=== PATIENT | male | born 1930 | race Caucasian/White ===

== ENCOUNTER 2017-09-06 08:47 | Day surgery (SDC) | payer OTHER, BC ==
--- NOTE | 2017-09-05 14:56 | RAD REPORT ---
EXAM DESCRIPTION: RAD - Chest Pa And Lat (2 Views) - 09/05/2017 2:30 pm CLINICAL HISTORY: Preop chest, pending prostate surgery COMPARISON: November 2015 TECHNIQUE: PA and lateral views of the chest were obtained. FINDINGS: The lungs are clear of an acute infiltrate, mass or failure finding. Right hemidiaphragm e levation with chronic right lung base atelectasis noted. This is a pattern similar to prior imaging. Heart size is normal and central vasculature is within normal limits. No pleural effusion or pneu mothorax seen. No acute bony finding noted. No aortic abnormality. IMPRESSION: No acute cardiopulmonary process. Chest findings are similar to comparison.
[2017-09-05 15:13] LABS: Absolute Lymphocytes (CBC) 1.2 K/uL (0.7-4.9); Absolute Monocytes 0.7 K/uL (0.1-1.3); Absolute Neutrophil 6.8 K/uL (1.8-8.0); Basophils % 0.8 % (0-1.3); Hematocrit 40.2 % (39.6-49.0); MCH 30.5 pg (27.0-35.0); MCV 92.3 fL (80-100); MPV 7.6 fL (7.6-11.3); Monocytes % 7.7 % (3.3-12.3); RBC Red Blood Cell Count 4.35 M/uL (4.33-5.43)
[2017-09-05 15:24] LABS: Urine Appearance CLEAR; Urine Bilirubin NEGATIVE (NEG); Urine Blood NEGATIVE (NEG); Urine Color YELLOW; Urine Glucose NEGATIVE (NEG); Urine Protein NEGATIVE (NEG); Urine Specific Gravity 1.015 (1.005-1.030); Urine Urobilinogen 0.2 mg/dL (0.2-1.0)
[2017-09-05 15:33] LABS: Urine Microscopic Reflex ORDER UMIC
[2017-09-05 15:35] LABS: Protime INR 0.99
[2017-09-05 15:54] LABS: Potassium 6.5 mEq/L (3.6-5.0)
[2017-09-05 16:51] LABS: Urine Bacteria <20 /HPF (NONE SEEN); Urine Culture Reflex Order NOT NEEDED; Urine RBC <5 /HPF (NONE SEEN)
--- NOTE | 2017-09-05 18:34 | EKG ---
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
[2017-09-06 09:39] LABS: Potassium 5.3 mEq/L (3.6-5.0)
[2017-09-06] MEDS ORDERED: GENTAMICIN 80 MG/100 ML BAG 80 MG/100 ML BAG IV ONE (10:35)
[2017-09-06] MEDS ORDERED: NA CHLORIDE 0.9% 1,000 ML ONE (10:35)
[2017-09-06] MEDS ORDERED: PROPOFOL 200 MG/20 ML VIAL IV ONE (12:03)
[2017-09-06] MEDS ORDERED: FENTANYL CITR 100 MCG/2 ML ONE (12:03)
[2017-09-06] MEDS ORDERED: LIDOCAINE 2% MPF 5 ML VIAL ONE (12:03)
[2017-09-06] MEDS ORDERED: DEXAMETHASONE 10 MG/ML VIAL ONE (12:29)
[2017-09-06] MEDS ORDERED: ONDANSETRON HCL 40 MG/20 ML VIAL ONE (12:30)
[2017-09-06] MEDS ORDERED: CIPROFLOXACIN 400mg IV 400 MG/200 ML BAG IV ONE (12:33)
[2017-09-06] MEDS ORDERED: NS 0.9% VIAL 10 ML ONE (12:48)
[2017-09-06] MEDS ORDERED: Phenylephrine HCl 10 MG/ML 1 ML VIAL ONE (12:48)
[2017-09-06] MEDS: MEPERIDINE HCL 25 MG/0.5 ML ONE ×2 (13:25→13:31)
[2017-09-06] MEDS ORDERED: PHENAZOPYRIDINE 100MG TAB PO ONE (13:38)
[2017-09-06] MEDS ORDERED: TRAMADOL HCL 50 MG TAB ONE (14:14)
[2017-09-06 14:35] VITALS: TEMP 96.9; O2SAT 93
[2017-09-06 15:03] VITALS: BP 110/60
== END 2017-09-06 15:30 | disposition home or self-care (01) ==
LOC: OR 08:47
PROVIDERS: ATTEND Urology
PROC: 0VT08ZZ Resection of Prostate, Via Natural or Artificial Opening Endoscopic (ICD-10-PCS; principal; 2017-09-06 12:00)
DX: N40.1 Benign prostatic hyperplasia with lower urinary tract symptoms (principal); R39.12 Poor urinary stream; E11.9 Type 2 diabetes mellitus without complications; I10 Essential (primary) hypertension; E03.9 Hypothyroidism, unspecified; Z98.52 Vasectomy status; Z88.0 Allergy status to penicillin; Z88.8 Allergy status to other drugs, medicaments and biological substances; Z82.3 Family history of stroke
CPT/HCPCS: 36415 ×3; 52601; 71046; 80048; 82947; 82962 ×2; 84132 ×2; 85025; 85610; 85730; 86850; 86900; 86901; 87077; 87086; 87088; 87186; 88305; 93005; J0744; J1100; J1580; J2175; J2370; J2405; J3010; J7030; 81003; 81015

== ENCOUNTER 2020-03-30 11:19 | Inpatient (IN) | payer OTHER, BC ==
--- OUTSIDE RECORDS SUMMARY | 2020-03-30 11:24 | XMS REPORT | Continuity of Care Document ---
:1930 Author Organization [facility] t Address [address] [place] [address] Care Team Providers Name Role Phone Unavailable Unavailable Unavailable Payers Payer Name Policy Type Policy Number Effective Date Expiration Date S ource Problems This patient has no known problems. Allergies, Adverse Reactions, Alerts Allergy Allergy Status Severity Reaction(s) Onset Inactive Treating Comm ents Source Name Type Date Date Clinician [place] DA Active [facility] ins 05-18 [place] [facility] No Known DA Active [facility] Allergie 05-17 [place] [facility] 00[facility] Medications This patient has no known medications. Procedures This patient has no known procedures. Results Test Description Test Time Test Comments Results Result [facility] e Comments - XR FLUORO FOR 2018-05-18 Patient Name: SPINE INJ 15:54:00 NNAMDI DORANTES Unit No: [id number] EXAMS: CPT CODE: [id number] XR FLUORO FOR SPINE INJ 28636 LUMBAR TRANSFORAMINAL INJECTION AND LUMBAR FACET BLOCK AND DECOMPRESSION OF THE FACET SYNOVIAL CYST REFERRING PHYSICIAN: PREOPERATIVE DIAGNOSIS: 1. Degenerative Lumbar Disc Disease. 2. Lumbar Facet Arthropathy POSTOPERATIVE DIAGNOSIS: Left L4-5 synovial cyst lumbar radiculopathy PROCEDURES PERFORMED Fluoroscopically guided needle localization of the bilateral L4, bilateral L5 with transforaminal epidural steroid injections 2. Transforaminal epidurogram/epidurogram s at bilateral L4, bilateral L5. 3. Fluoroscopic guided injections of the bilateral L4-5, bilateral L5-S1 intra-articular facets with local anesthetic and steroids. 4. Decompression left L4-5 synovial cyst FINDINGS: Minimal fluid removed from the cyst, concordant provocation bilateral L5 nerve roots for leg pain left L4 hip pain ANTIBIOTIC: Cefazolin ESTIMATED BLOOD LOSS: Minimal ANESTHESIA: (TIVA) Total intravenous anesthetic (patient intolerant to sedatives and hypnotics) COMPLICATIONS: None DETAILS OF PROCEDURE: After obtaining stable vital signs, informed consent and IV access, with no known contraindications to proceeding, the patient was taken to the fluoroscopy suite and placed in a prone position with all extremities padded and appropriate monitors placed. A sterile prep and drape was performed over the lumbosacral spine. Using fluoroscopic visualization at each level the insertion site was marked for a paravertebral approach to the foramen. Using standard technique, a 25 gauge needle was advanced to the base of the pedicle. In AP view, final positioning was obtained outside the 6 o clock position on the pedicle. Then, 1 ml of Isovue-300 contrast was injected to produce the epidurograms. No paresthesias were elicited with needle insertion or injection and there were no signs of intravascular or intrathecal uptake. Then, with 1 ml of 4% lidocaine and 10 mg of triamcinolone was injected incrementally with frequent negative aspirations. There were no signs of intravascular or intrathecal uptake. The patient's vital signs remained stable. [facility] NAME: NNAMDI DORANTES [address] [facility] PHYS: DOCUD - DoctorDarin MD [place], [place] [address] : 1930 AGE: 87 SEX: M LOC: YGosiaNOEMY PHONE #: [phone] EXAM DATE: 05/18/2018 [place]: [facility] [place] #: [phone] RAD #: D/C DT PAGE 1 Signed Report (CONTINUED) Patient Name: NNAMDI DORANTES Unit No: [id number] EXAMS: CPT CODE: [id number] XR FLUORO FOR SPINE INJ 94593 <Continued> The patient was placed in a prone position and the lumbosacral spine was prepped and draped in sterile fashion. The left L4-L5 facet synovial cyst was aspirated and minimal fluid was aspirated using a 27 guage 3.5 inch needle. Then using standard technique, using fluoroscopic guidance, a 27-gauge needle was advanced into the facet joint and 2 mL of Isovue-300 contrast was injected to produce an arthrogram. Then 2 mL was of 0.75 percent Marcaine and 2 mL of 4% lidocaine and 20 mg of triamcinolone was injected into the joint. Areas were cleaned of the prep and the patient was taken to the recovery room. at 1557 Reported and signed by: Darin Riley M.D. CC: Darin Riley MD Technologist: LUDIN LICONA RT(R) Transcribed D/ (4465) [email or web address] [facility] NAME: NNAMDI DORANTES [address] [facility] PHYS: Darin Sims MD [place], [place] [address] : 1930 AGE: 87 SEX: M LOC: SARAHI PHONE #: [phone] EXAM DATE: 05/18/2018 STATUS: [facility] [place] FAX #: [phone] RAD #: D/C DT PAGE 2 Signed Report Patient Name: NNAMDI DORANTES Unit No: [id number] EXAMS: CPT CODE: [id number] XR FLUORO FOR SPINE INJ 91439 <Continued> Orig Print D/T: S: 05/18/2018 (3510) [facility] NAME: NNAMDI DORANTES [facility] PHYS: Darin Sims MD [place], [place] [address] : 1930 AGE: 87 SEX: M LOC: SARAHI PHONE #: [phone] EXAM DATE: 05/18/2018 STATUS: [facility] [place]X #: [phone] RAD #: D/C DT PAGE 3 Signed Report GLUBED 2018-05-18 12:56:00 Test Item Value Reference Range Interpretation Comme nts GLUBED (test code = GLUBED) 105 mg/dL 60-125 N [id number] 11:00:00 Test Item Value Reference Range Interpretation Comments GLUBED (test code = GLUBED) 109 mg/dL 60-125 N
[2020-03-30 12:32] LABS: Absolute Lymphocytes (CBC) 0.2 K/uL (0.7-4.9); Basophils % 0.2 % (0-1.3); Hematocrit 36.4 % (39.6-49.0); Lymphocytes % 1.8 % (15.3-44.8); MPV 9.3 fL (7.6-11.3); RBC Red Blood Cell Count 3.93 M/uL (4.33-5.43)
--- NOTE | 2020-03-30 12:34 | RAD REPORT ---
EXAM DESCRIPTION: RAD - Chest Single View - 03/30/2020 12:29 pm CLINICAL HISTORY: DYSPNEA Chest pain. COMPARISON: Chest Pa And Lat (2 Views) dated 09/05/2017; Chest Pa And Lat (2 Views) dated 12/07/2015; CHEST SINGLE VIEW dated 06/07/2014; CHEST SINGLE VIEW dated 01/22/2013 FINDINGS: Portable technique limits examination quality. The right hemidiaphragm is mildly elevated appearing chronic. The lungs appear grossly clear. The hea rt is normal in size. No displaced fractures. IMPRESSION: Chronic elevation the right hemidiaphragm.
[2020-03-30 12:38] LABS: Protime INR 1.44
[2020-03-30 12:58] LABS: Albumin 2.8 g/dL (3.4-5.0); Bilirubin Direct 0.8 mg/dL (0-0.2); Bilirubin Total 1.4 mg/dL (0.2-1.0); Potassium 5.1 mmol/L (3.5-5.1); Protein, Total 6.4 g/dL (6.4-8.2); Troponin (Emerg Dept Use Only) 0.02 ng/mL (0.0-0.045)
[2020-03-30] MEDS ORDERED: NA CHLORIDE 0.9% 1,000 ML ONE (13:03)
[2020-03-30 13:13] LABS: Platelet Estimate DECR
[2020-03-30 13:14] LABS: Blood Morphology Comment NOT SEEN (NOT SEEN)
--- NOTE | 2020-03-30 13:52 | RAD REPORT ---
EXAM DESCRIPTION: US - Abdomen Exam Limited - 03/30/2020 1:39 pm CLINICAL HISTORY: elevated liver enzymes Abdominal pain COMPARISON: Abdomen Pelvis Scan dated 02/15/2017 FINDINGS: Cholecystectomy. The common bile duct is poorly seen due to bowel gas. The liver demonstrates prominent fatty liver. IMPRESSION: Prominent fatty liver is noted.
--- NOTE | 2020-03-30 14:43 | RAD REPORT ---
EXAM DESCRIPTION: CT - Abdomen Pelvis Wo Contrast - 03/30/2020 2:32 pm CLINICAL HISTORY: Abdominal pain. ABD PAIN COMPARISON: CT ABD PELVIS W CONTRAST dated 01/13/2013 TECHNIQUE: CT imaging of the abdomen and pelvis was performed without contrast. Solid organ and vasc ular assessment is limited due to lack of IV contrast. All CT scans are performed using dose optimization technique as appropriate and may include automated exposure control or mA/KV adjustment according to patient size. FINDINGS: Small right pleural effusion is seen. Mild atelectasis or infiltrate is present the right lung base with elevated right hemidiaphragm noted.Cholecystectomy clips evident. The liver, spleen, pancreas, adrenal glands and kidneys are within normal limits for a limited non-co ntrast examination. No bowel obstruction, free air, free fluid or abscess. Sigmoid diverticulosis coli is present. No willie dence of acute diverticulitis. The appendix is normal. Prostate gland is mildly prominent and project s into the bladder base. The osseous structures are within normal limits. IMPRESSION: Mild atelectasis or infiltrate in the right lung base with small right pleural effusion. Colonic diverticulosis without diverticulitis. A limited non-contrast examination was performed as detailed.
--- NOTE | 2020-03-30 14:53 | ER ---
Nurse's Notes [facility] Name: Cecil Coleman Age: 89 yrs Sex: Male : 1930 Arrival Date: 03/30/2020 Time: 11:23 Bed 2 Private MD: Diagnosis: RLL Pneumonia;Generalized fatigue Presentation: 03/30 11:24 Chief complaint: EMS states: Toned out for generalized weakness, BP on arrival 120/78, jl7 orthostatic at 100/70 on standing, NSR on EKG. Coronavirus screen: Client denies travel out of the [place] in the last 14 days. fatigue, Client presents with at least one sign or symptom that may indicate coronavirus-19. Standard/surgical mask placed on the client. Provider contacted for isolation considerations. Ebola Screen: No symptoms or risks identified at this time. Initial Sepsis Screen: Does the patient meet any 2 criteria? RR > 20 per min. Does the patient have a suspected source of infection? No. Patient's initial sepsis screen is negative. Risk Assessment: Do you want to hurt yourself or someone else? Patient reports no desire to harm self or others. Onset of symptoms was March 30, 2020. Care prior to arrival: Medication(s) given: Normal saline infusion, 300 mL IV initiated. 20 GA, in the left antecubital area, Glucose check: 236. Transition of care: patient was not received from another setting of care. 11:24 Method Of Arrival: EMS: [facility] jl7 11:24 Acuity: KANCHAN 2 jl7 Triage Assessment: 11:34 General: Appears distressed, uncomfortable, Behavior is calm, cooperative, appropriate jl7 for age. Pain: Denies pain. Neuro: Level of Consciousness is awake, alert, obeys commands, Oriented to person, place, time, situation. Cardiovascular: Heart tones present Patient's skin is warm and dry. Respiratory: Airway is patent Respiratory effort is even, labored, with retractions, Respiratory pattern is symmetrical, tachypnea Breath sounds are clear in right upper lobe and left upper lobe. GI: Abdomen is round. : No signs and/or symptoms were reported regarding the genitourinary system. Derm: Skin is pink, warm \T\ dry. 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 - Social history:: Smoking status: Patient denies any tobacco usage or history of. Screenin:24 Abuse screen: Denies threats or abuse. Denies injuries from another. Nutritional sv screening: No deficits noted. Tuberculosis screening: No symptoms or risk factors identified. Fall Risk None identified. Assessment: 11:30 General: See triage assessment. jl7 12:30 Reassessment: Patient appears in no apparent distress at this time. No changes from [facility] previously documented assessment. Patient and/or family updated on plan of care and expected duration. Pain level reassessed. Patient is alert, oriented x 3, equal unlabored respirations, skin warm/dry/pink. 13:30 Reassessment: Patient appears in no apparent distress at this time. No changes from jl previously documented assessment. Patient and/or family updated on plan of care and expected duration. Pain level reassessed. Patient is alert, oriented x 3, equal unlabored respirations, skin warm/dry/pink. 15:27 Reassessment: Attempted to call report, nurse unavailable. sv 15:39 Reassessment: Dr. Min at bedside discussing results and POC. jl7 Vital Signs: 11:24 BP 140 / 75; Pulse 83; Resp 44 S; Temp 99.6(O); Pulse Ox 96% on R/A; jl7 11:36 BP 110 / 47; Pulse 81; Resp 29; Pulse Ox 95% ; jl7 12:44 Weight 129.27 kg; jl7 13:00 BP 129 / 50; Pulse 72; Resp 26; Pulse Ox 96% ; jl7 14:07 BP 127 / 49; Pulse 78; Resp 27; Pulse Ox 96% ; jl7 15:00 Pulse Ox 85% on R/A; sv 15:38 BP 115 / 53; Pulse 75; Resp 24; Pulse Ox 100% ; jl7 15:00 Pt stated that he was taking a nap. Placed pt on O2 \T\ 2L per NC. sv ED Course: 11:23 Patient arrived in ED. sv 11:24 Killian Cortez RN is Primary Nurse. jl7 11:24 Maintain EMS IV. Dressing intact. Site clean \T\ dry. Gauge \T\ site: 20G L AC. sv 11:24 Patient has correct armband on for positive identification. Placed in gown. Bed in low sv position. Call light in reach. Side rails up X2. hall monitor on. Pulse ox on. NIBP on. Door closed. Head of bed elevated. 11:30 Triage completed. jl7 11:34 Arm band placed on right wrist. jl7 11:35 Abilio Min MD is Attending Physician. ps1 12:28 X-ray completed. Portable x-ray completed in exam room. Patient tolerated procedure md1 well. 12:30 Chest Single View XRAY In Process Unspecified. EDMS 12:33 COVID swab sent to lab. jl7 13:39 US Abdomen Limited In Process Unspecified. EDMS 14:32 CT Abd/Pelvis - Without Contrast In Process Unspecified. EDMS 14:53 Derrell Dill MD is Hospitalizing Provider. ps1 15:45 Repeat lab(s) drawn. by mo, sent to lab. dh3 16:31 No provider procedures requiring assistance completed. Patient admitted, IV remains in vg1 place. intact, No redness/swelling at site. Administered Medications: 13:00 Drug: NS 0.9% (30 ml/kg) 30 ml/kg Route: IV; Rate: bolus; Site: right forearm; jl7 14:30 Follow up: Response: No adverse reaction; IV Status: Completed infusion; IV Intake: jl7 1000ml 15:32 Drug: Rocephin 1 grams Route: IV; Rate: bolus; Site: right forearm; jl7 15:35 Follow up: Response: No adverse reaction; IV Status: Completed infusion jl7 15:36 Drug: AZITHromycin 500 mg Route: IVPB; Infused Over: 1 hrs; Site: right forearm; jl7 Intake: 14:30 IV: 1000ml; Total: 1000ml. jl7 Outcome: 14:53 Decision to Hospitalize by Provider. ps1 15:48 Admitted to Tele accompanied by tech, via stretcher, room 212, with oxygen, with chart, sv Report called to Michelle DUVALL 15:48 Condition: stable 15:48 Instructed on the need for admit. 16:31 Patient left the ED. vg1 Signatures: Dispatcher [employer] Jaimie Toledo, RN RN sv Killian Cortez RN RN jl7 Jia Strange [facility] Abilio Min MD MD ps1 Dionna Roche md1 Indigo Schwartz RN RN vg1
--- NOTE | 2020-03-30 14:53 | EDPHYS ---
Physician Documentation [facility] Name: Cecil Coleman Age: 89 yrs Sex: Male : 1930 Arrival Date: 03/30/2020 Time: 11:23 Bed 2 Private MD: ED Physician Abilio Min HPI: 03/30 12:27 This 89 yrs old Male presents to ER via EMS with complaints of General ps1 Weakness. 12:27 patient states that he has had generalized fatigue starting last night associated with ps1 fever, chills, and shortness of breath. [facility]. He has CKD, Afib on Eliquis, CAD and hx of UTI's in past. . 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 - Social history:: Smoking status: Patient denies any tobacco usage or history of. ROS: 12:27 Eyes: Negative for injury, pain, redness, and discharge, Cardiovascular: Negative for ps1 chest pain, palpitations, and edema, Abdomen/GI: Negative for abdominal pain, nausea, vomiting, diarrhea, and constipation, : Negative for injury, bleeding, discharge, and swelling, MS/Extremity: Negative for injury and deformity, Skin: Negative for injury, rash, and discoloration. 12:27 Constitutional: Positive for body aches, chills, fatigue, fever. 12:27 Respiratory: Positive for shortness of breath. 12:27 Neuro: Positive for headache. Exam: 12:27 Constitutional: This is a well developed, well nourished patient who is awake, alert, ps1 and in no acute distress. Head/Face: Normocephalic, atraumatic. Cardiovascular: Regular rate and rhythm. No gallops, murmurs, or rubs. Normal PMI, no JVD. No pulse deficits. Respiratory: Lungs have equal breath sounds bilaterally, clear to auscultation and percussion. No rales, rhonchi or wheezes noted. No increased work of breathing, no retractions or nasal flaring. Abdomen/GI: Soft, non-tender, with normal bowel sounds. No distension or tympany. No guarding or rebound. No evidence of tenderness throughout. MS/ Extremity: Pulses equal, no cyanosis. Neurovascular intact. Full, normal range of motion. Neuro: Awake and alert, GCS 15, oriented to person, place, time, and situation. Cranial nerves II-XII grossly intact. Sensory grossly intact. Vital Signs: 11:24 BP 140 / 75; Pulse 83; Resp 44 S; Temp 99.6(O); Pulse Ox 96% on R/A; jl7 11:36 BP 110 / 47; Pulse 81; Resp 29; Pulse Ox 95% ; jl7 12:44 Weight 129.27 kg; jl7 13:00 BP 129 / 50; Pulse 72; Resp 26; Pulse Ox 96% ; jl7 14:07 BP 127 / 49; Pulse 78; Resp 27; Pulse Ox 96% ; jl7 15:00 Pulse Ox 85% on R/A; sv 15:38 BP 115 / 53; Pulse 75; Resp 24; Pulse Ox 100% ; jl7 15:00 Pt stated that he was taking a nap. Placed pt on O2 \T\ 2L per NC. sv MDM: 11:58 Patient medically screened. ps1 03/30 11:53 Order name: Basic Metabolic Panel; Complete Time: 13:09 ps1 03/30 11:53 Order name: Blood Culture Adult (2) ps1 03/30 11:53 Order name: CBC with Diff; Complete Time: 13:14 ps1 03/30 12:42 Interpretation: Abnormal: WBC 13.4; HGB 11.8; HCT 36.4; NEUT A 12.3. ps1 03/30 11:53 Order name: Lactate; Complete Time: 13:12 ps1 03/30 13:13 Interpretation: Abnormal: LAC 2.2. ps1 03/30 11:53 Order name: LFT's; Complete Time: 13:09 ps1 03/30 11:53 Order name: Lipase; Complete Time: 13:09 ps1 03/30 11:53 Order name: Procalcitonin; Complete Time: 13:14 ps1 03/30 11:53 Order name: Protime (+inr); Complete Time: 12:45 ps1 03/30 11:53 Order name: Troponin (emerg Dept Use Only); Complete Time: 13:09 ps1 03/30 11:53 Order name: Urine Microscopic Only; Complete Time: 16:09 ps1 03/30 12:34 Order name: Glucose, Ancillary Testing; Complete Time: 12:42 EDMS 03/30 13:12 Order name: Manual Differential; Complete Time: 13:14 EDMS 03/30 14:37 Order name: Urine Dipstick--Ancillary (enter results); Complete Time: 16:09 bd 03/30 15:00 Order name: CBC with Automated Diff EDMS 03/30 15:00 Order name: CBC with Automated Diff EDMS 03/30 15:00 Order name: Comprehensive Metabolic Panel EDMS 03/30 15:00 Order name: Comprehensive Metabolic Panel EDMS 03/30 15:00 Order name: Lipid Profile EDMS 03/30 15:00 Order name: Lipid Profile EDMS 03/30 15:00 Order name: Magnesium EDMS 03/30 15:00 Order name: Magnesium EDMS 03/30 15:00 Order name: NT PRO-BNP EDMS 03/30 15:00 Order name: NT PRO-BNP EDMS 03/30 15:00 Order name: Phosphorus EDMS 03/30 15:00 Order name: Phosphorus EDMS 03/30 15:00 Order name: Protime (+INR) EDMS 03/30 15:00 Order name: Protime (+INR) EDMS 03/30 15:00 Order name: PTT, Activated Partial Thromb EDMS 03/30 15:00 Order name: PTT, Activated Partial Thromb EDMS 03/30 11:53 Order name: Chest Single View XRAY; Complete Time: 12:42 ps1 03/30 11:53 Order name: Accucheck; Complete Time: 13:26 [facility] 03/30 11:53 Order name: Cardiac monitoring; Complete Time: 13:26 [facility] 03/30 11:53 Order name: EKG - Nurse/Tech; Complete Time: 13:26 [facility] 03/30 11:53 Order name: IV Saline Lock - Large Bore; Complete Time: 13:26 [facility] 03/30 11:53 Order name: Labs collected and sent; Complete Time: 13:26 [facility] 03/30 11:53 Order name: O2 Per Protocol; Complete Time: 13:26 [facility] 03/30 11:53 Order name: O2 Sat Monitoring; Complete Time: 13:26 [facility] 03/30 11:53 Order name: Urine Dipstick-Ancillary (obtain specimen); Complete Time: 15:38 [facility] 03/30 13:12 Order name: US Abdomen Limited; Complete Time: 13:55 [facility] 03/30 13:56 Order name: CT Abd/Pelvis - Without Contrast; Complete Time: 14:44 [facility] 03/30 15:00 Order name: Heart Healthy EDMD 03/30 15:17 Order name: SARS-COV-2 RT PCR; Complete Time: 16:09 EDMD 03/30 16:11 Order name: Lactate Sepsis 2 HR Follow-up; Complete Time: 16:13 EDMS Administered Medications: 13:00 Drug: NS 0.9% (30 ml/kg) 30 ml/kg Route: IV; Rate: bolus; Site: right forearm; jl7 14:30 Follow up: Response: No adverse reaction; IV Status: Completed infusion; IV Intake: jl7 1000ml 15:32 Drug: Rocephin 1 grams Route: IV; Rate: bolus; Site: right forearm; jl7 15:35 Follow up: Response: No adverse reaction; IV Status: Completed infusion jl7 15:36 Drug: AZITHromycin 500 mg Route: IVPB; Infused Over: 1 hrs; Site: right forearm; jl7 Disposition: 03/30/20 14:53 Hospitalization ordered by Derrell Dill for Observation. Preliminary diagnosis are RLL Pneumonia, Generalized fatigue. - Bed requested for Telemetry/MedSurg (observation). - Status is Observation. vg1 - Condition is Stable. - Problem is new. - Symptoms are unchanged. Signatures: Dispatcher [employer] EDMS Dirrim, Zakiya bd SalazarJaimie jay, RN RN sv Killian Cortez, RN RN jl7 Abilio Min MD MD ps1 Indigo Schwartz, RN RN vg1 Corrections: (The following items were deleted from the chart) 12:42 12:42 WBC 13.4; HGB 11.8; HCT 36.4; NEUT A 12.3. ps1 ps1 14:06 11:54 CORONAVIRUS+MR.LAB.BRZ ordered. EDMS EDMS 15:25 14:53 Hospitalization Ordered by Derrell Dill MD for Observation. Preliminary bd diagnosis is RLL Pneumonia; Generalized fatigue. Bed requested for Telemetry/MedSurg (observation). Status is Observation. Condition is Stable. Problem is new. Symptoms are unchanged. ps1 15:45 15:25 03/30/2020 14:53 Hospitalization Ordered by Derrell Dill MD for Observation. sv Preliminary diagnosis is RLL Pneumonia; Generalized fatigue. Bed requested for Telemetry/MedSurg (observation). Status is Observation. Condition is Stable. Problem is new. Symptoms are unchanged. bd 16:31 15:45 03/30/2020 14:53 Hospitalization Ordered by Derrell Dill MD for Observation. vg1 Preliminary diagnosis is RLL Pneumonia; Generalized fatigue. Bed requested for Telemetry/MedSurg (observation). Status is Observation. Condition is Stable. Problem is new. Symptoms are unchanged. sv
[2020-03-30] MEDS ORDERED: ONDANSETRON 4 MG/2 ML VIAL IV PRN (14:55)
[2020-03-30] MEDS ORDERED: ACETAMINOPHEN 500 MG TAB PO PRN (14:55)
[2020-03-30] MEDS ORDERED: AZITHROMYCIN IV 500 MG in NA CHLORIDE 0.9% 250 ML IVPB ONE (15:00)
[2020-03-30] MEDS ORDERED: CEFTRIAXONE/SWI 1gm 1 GM/10 ML SYR ONE (15:09)
[2020-03-30 15:11] LABS: Urine Bacteria <20 /HPF (NONE SEEN); Urine Mucus 1+ /HPF (NONE SEEN); Urine RBC <5 /HPF (NONE SEEN)
[2020-03-30 15:11] LABS: Urine Blood NEGATIVE (NEG); Urine Glucose NEGATIVE (NEG); Urine Protein NEGATIVE (NEG); Urine Specific Gravity 1.015 (1.005-1.030); Urine pH 5.5 (5.0-7.0)
[2020-03-30 17:12] VITALS: BMI 34.7
[2020-03-30] MEDS: NA CHLORIDE 0.9% 1,000 ML IV SCH (17:20)
[2020-03-30] MEDS: ENOXAPARIN 30 MG/0.3 ML SQ SCH (17:30)
[2020-03-30] MEDS: IPRATROPIUM BROM 0.5MG/2.5ML NEB SCH (19:45)
[2020-03-30] MEDS: CEFTRIAXONE/SWI 1gm 1 GM/10 ML SYR IVP SCH (20:45)
[2020-03-31] MEDS: IPRATROPIUM BROM 0.5MG/2.5ML NEB SCH ×4 (00:55→20:00)
[2020-03-31] MEDS: NA CHLORIDE 0.9% 1,000 ML IV SCH ×2 (04:14→17:14)
[2020-03-31 05:49] LABS: Albumin 2.5 g/dL (3.4-5.0); Magnesium 2.2 mg/dL (1.8-2.4); Phosphorus 3.3 mg/dL (2.5-4.9); Potassium 4.9 mmol/L (3.5-5.1); Protein, Total 5.8 g/dL (6.4-8.2)
[2020-03-31 05:51] LABS: Absolute Lymphocytes (CBC) 0.5 K/uL (0.7-4.9); Basophils % 0.4 % (0-1.3); Hematocrit 32.1 % (39.6-49.0); Lymphocytes % 6.9 % (15.3-44.8); MPV 9.3 fL (7.6-11.3); RBC Red Blood Cell Count 3.47 M/uL (4.33-5.43)
[2020-03-31 05:55] LABS: Protime INR 1.53
[2020-03-31] MEDS: ALBUTEROL 2.5 MG/3 ML NEB SOL NEB PRN ×3 (08:00→20:00)
[2020-03-31] MEDS: CEFTRIAXONE/SWI 1gm 1 GM/10 ML SYR IVP SCH ×2 (09:00→20:42)
[2020-03-31] MEDS: AZITHROMYCIN IV 500 MG in NA CHLORIDE 0.9% 250 ML IVPB SCH (09:48)
[2020-03-31] MEDS: ENOXAPARIN 30 MG/0.3 ML SQ SCH (09:50)
[2020-04-01] MEDS: IPRATROPIUM BROM 0.5MG/2.5ML NEB SCH ×4 (01:09→20:00)
[2020-04-01] MEDS: NA CHLORIDE 0.9% 1,000 ML IV SCH (05:59)
[2020-04-01] MEDS ORDERED: FUROSEMIDE 20 MG/ 2ML VIAL IV ONE (08:14)
[2020-04-01] MEDS: AZITHROMYCIN IV 500 MG in NA CHLORIDE 0.9% 250 ML IVPB SCH (08:23)
[2020-04-01] MEDS: CEFTRIAXONE/SWI 1gm 1 GM/10 ML SYR IVP SCH ×2 (08:24→20:06)
[2020-04-01] MEDS: ENOXAPARIN 30 MG/0.3 ML SQ SCH (08:24)
--- NOTE | 2020-04-01 09:09 | P.HP ---
Certification for Inpatient Patient admitted to: Inpatient With expected LOS: >2 Midnights Patient will require the following post-hospital care: None Practitioner: I am a practitioner with admitting privileges, knowledge of patient current condition, hospital course, and medical plan of care. Services: Services provided to patient in accordance with Admission requirements found in Title 42 Section 412.3 of the Code of Federal Regulations Patient History Date of Service: 03/30/20 Reason for admission: Shortness of breath History of Present Illness: Patient is a 89-year-old gentleman who came to the hospital with difficulty breathing. Patient was having some shortness of breath and he was found to be tachypneic in the emergency room. However, he was maintaining his O2 sats. He came to the emergency room for further evaluation. In the ER he was found have an elevated procalcitonin level. There is some right lower lobe haziness. Patient could also have a pneumonia. His BNP on arrival was also elevated. Would check an echocardiogram. Prior echocardiogram did not reveal any significant abnormalities. Patient be admitted to the hospital for further evaluation. Allergies Penicillins Allergy (Mild, Verified 09/05/17 13:53) Hives/Rash simvastatin Adverse Reaction (Mild, Verified 09/05/17 13:53) Shortness of breath Home Medications: Apixaban [Eliquis] 2.5 mg PO BID 03/30/20 Aspirin [Ecotrin 81 MG] 81 mg PO DAILY 03/30/20 Colestipol HCl [Colestid] 1 gm PO BID 03/30/20 Dronedarone [Multaq*] 400 mg PO BID 03/30/20 Enalapril [Vasotec] 5 mg PO DAILY 03/30/20 Levothyroxine [Synthroid] 50 mcg PO BID 6AM 6PM 03/30/20 Saxagliptin HCl [Onglyza] 2.5 mg PO DAILY 03/30/20 Tamsulosin [Flomax] 0.4 mg PO DAILY 03/30/20 atenoloL [Tenormin] 25 mg PO DAILY 03/30/20 glipiZIDE [Glipizide] 10 mg PO BID 03/30/20 - Past Medical/Surgical History Has patient received pneumonia vaccine in the past: Yes Diabetic: Yes -: hyperlipidemia -: NIDDM -: typhoid fever -: dm -: UTIs -: TURP -: joanna intraocular implants -: joanna dupline contraction -: vasectomy -: TURP -: heart stents -: justin -: bilateral hand sx - Family History Father Medical History: Heart disease, Hypertension, Diabetes, Stroke Mother Medical History: Heart disease Sister Medical History: Diabetes - Social History Smoking Status: Never smoker Alcohol use: No CD- Drugs: No Caffeine use: No Place of Residence: Home Review of Systems 10-point ROS is otherwise unremarkable Physical Examination - Vital Signs Temperature: 98.2 F Blood Pressure: 150/70 Pulse: 103 Respirations: 18 Pulse Ox (%): 97 - Physical Exam General: Alert, In no apparent distress, Oriented x3 HEENT: Atraumatic, PERRLA, Mucous membr. moist/pink, EOMI, Sclerae nonicteric Neck: Supple, 2+ carotid pulse no bruit, No LAD, Without JVD or thyroid abnormality Respiratory: Diminished, Expiratory wheezes, Rhonchi/gurgles Cardiovascular: Regular rate/rhythm, Normal S1 S2, Systolic murmur Gastrointestinal: Normal bowel sounds, Soft and benign, Non-distended, No tenderness Musculoskeletal: No clubbing, No tenderness, Swelling Integumentary: No rashes Neurological: Normal gait, Normal speech, Normal strength at 5/5 x4 extr, Normal tone, Sensation intact, Cranial nerves 3-12 intact, Normal affect Lymphatics: No axilla or inguinal lymphadenopathy Assessment & Plan - Problems (Diagnosis) (1) Right lower lobe pneumonia Current Visit: Yes Status: Acute (2) CHF (congestive heart failure) Current Visit: Yes Status: Acute (3) Urinary tract infection Current Visit: No Status: Acute (4) Diabetes mellitus Current Visit: No Status: Chronic (5) Hypertensive disorder, systemic arterial Current Visit: No Status: Chronic - Plan 1. Continue with IV antibiotics 2. Awaiting sputum and blood culture 3. Repeat chest x-ray 4. Will proceed with CT scan of the chest if pneumonia is not improved to evaluate for postobstructive pneumonia 5. Appreciate pulmonary consultation 6. Continue with nebs as needed 7. O2 per protocol 8. Continue with gentle hydration 9. Repeat labs including CBC and renal function in a.m. 10. Also get repeat echocardiogram 11. Monitor volume status closely 12. GI and DVT prophylaxis Discharge Plan: Home Plan to discharge in: Greater than 2 days - Advance Directives Does patient have a Living Will: No Does patient have a Durable POA for Healthcare: No Critical Care: No Time Spent Managing PTS Care (In Minutes): 45
--- NOTE | 2020-04-01 09:10 | RAD REPORT ---
EXAM DESCRIPTION: RAD - Chest Single View - 04/01/2020 8:45 am CLINICAL HISTORY: congestion? Chest pain. COMPARISON: Chest Single View dated 03/30/2020; Chest Pa And Lat (2 Views) dated 09/05/2017; Chest Pa And Lat (2 Views) dated 12/07/2015; CHEST SINGLE VIEW dated 06/07/2014; Abdomen Pelvis Wo Contrast d ated 03/30/2020 FINDINGS: Portable technique limits examination quality. Elevated right hemidiaphragm is again noted, unchanged. Small bilateral pleural effusions are seen. I nterstitial lung prominence is present bilaterally, mild. The heart is mildly enlarged.
--- NOTE | 2020-04-01 09:13 | P.PN ---
Subjective Date of Service: 03/31/20 Patient still feels short of breath. Strength was diminished. Also hypoxic. Repeat chest x-ray is pending. Review of Systems 10-point ROS is otherwise unremarkable Physical Examination - Vital Signs Temperature: 98.2 F Blood Pressure: 150/70 Pulse: 103 Respirations: 18 Pulse Ox (%): 97 - Physical Exam General: Alert, In no apparent distress, Oriented x3 Respiratory: Diminished, Crackles/rales, Rhonchi/gurgles Cardiovascular: Regular rate/rhythm, Normal S1 S2, No murmurs Gastrointestinal: Normal bowel sounds, Soft and benign, Non-distended, No tenderness Musculoskeletal: No tenderness Integumentary: No rashes Neurological: Normal speech, Normal tone, Normal affect Lymphatics: No axilla or inguinal lymphadenopathy - Studies Medications List Reviewed: Yes Assessment & Plan - Problems (Diagnosis) (1) Right lower lobe pneumonia Status: Acute (2) CHF (congestive heart failure) Status: Acute (3) Urinary tract infection Status: Acute (4) Diabetes mellitus Status: Chronic (5) Hypertensive disorder, systemic arterial Status: Chronic - Plan Continue plan as mentioned below 1. Continue with IV antibiotics 2. Awaiting cultures 3. Repeat chest x-ray pending 4. May need to repeat CT if symptoms worsens 5. Continue with nebs as needed 6. O2 per protocol 7. Continue with gentle hydration 8. Repeat labs including CBC and renal function in a.m. 9. Also get repeat echocardiogram 10. Monitor volume status closely Discharge Plan: Home Plan to discharge in: Greater than 2 days - Advance Directives Does patient have a Living Will: No Does patient have a Durable POA for Healthcare: No - Code Status/Comfort Care Code Status Assessed: Yes Code Status: Full Code Critical Care: No Time Spent Managing PTS Care (In Minutes): 35
[2020-04-01] MEDS: ALBUTEROL 2.5 MG/3 ML NEB SOL NEB PRN ×3 (09:15→20:00)
[2020-04-01] MEDS: APIXABAN 2.5 MG TABLET PO SCH ×2 (10:45→20:07)
[2020-04-01] MEDS: DRONEDARONE 400 MG TAB PO SCH ×2 (10:45→20:07)
[2020-04-01] MEDS: atenoloL 25 MG TAB PO SCH (10:45)
[2020-04-01] MEDS: TAMSULOSIN 0.4 MG SR CAP PO SCH (10:46)
[2020-04-01 11:22] LABS: Absolute Lymphocytes (CBC) 0.4 K/uL (0.7-4.9); Basophils % 0.2 % (0-1.3); Hematocrit 32.6 % (39.6-49.0); Lymphocytes % 5.4 % (15.3-44.8); MPV 8.9 fL (7.6-11.3); RBC Red Blood Cell Count 3.51 M/uL (4.33-5.43)
[2020-04-01 11:23] LABS: Magnesium 1.8 mg/dL (1.8-2.4); Phosphorus 2.5 mg/dL (2.5-4.9); Potassium 4.8 mmol/L (3.5-5.1)
--- NOTE | 2020-04-01 12:02 | CON ---
History Of Present Illness: Cecil Kenyon is an 89-year-old male coming into the hospital w ith difficulty in breathing, was admitted for shortness of breath, and pneumonia to the right side. The patient is currently being treated with Zithromax and Rocephin. He was found to be tachypneic in the emergency room, has significant history of atrial fibrillation, and also has history of sleep ap rafiq. The patient was found to have elevated procalcitonin, but also his kidney function and liver fu nctions are elevated. The patient denies any other problems other than diabetes mellitus, hyperlipid emia, prostatic hypertrophy for which he had TURP, and heart stent placement. The patient is feeling slightly better today. Denies any other problems. Continue to be short of breath, currently on 3 L nasal cannula. Past Medical History: Hyperlipidemia, non-insulin diabetes mellitus, typhoid fever, urinary tract in fection, TURP x2, bilateral intraocular implants, heart stent placement, bilateral hand surgeries. Social History: Nonsmoker, nondrinker. Family History: Heart disease, hypertension, diabetes mellitus, stroke. Medications: Zithromax and Rocephin. See MARS for other medication. Allergies: PENICILLIN CAUSES RASHES AND PASSES OUT. ALSO SIMVASTATIN WHICH CAUSES HIM TO HAVE MUSCL E DAMAGE. Review of Systems: A 10-point review was done. Physical Examination: General: This is an 89-year-old male, lying in bed on 3 L nasal cannula, not in any acute distress. Vital Signs: Temperature 98, pulse 100, respirations 18, blood pressure 150/70. HEENT: Unremarkable. Neck: Supple. Lungs: Basal crackles, right more than left. Heart: S1, S2. Regular. Abdomen: Soft, nontender. Bowel sounds present. Extremities: Trace edema. Laboratory Data: No CBC available at this time. Yesterday, WBC was 8, hemoglobin 10.5, platelets ar e 88. Chemistry shows from yesterday; sodium 140, potassium 4.9, chloride 109, bicarb 29, BUN 37, cr eatinine 2.29, glucose is 103, AST is 74, ALT is 94 with albumin level of 2.5. Procalcitonin is 4.08 . Blood cultures are negative for 24 hours. Chest x-ray shows limited portable technique with eleva cherise right hemidiaphragm, small bilateral pleural effusions. His CT of abdomen and pelvis done shows the patient has mild atelectasis or infiltrate in the right lung base with small right pleural effusi ons, colonic diverticulosis without diverticulitis, limited noncontrast examination was performed as detailed. Assessment And Plan: This is 89-year-old male with dyspnea secondary to pneumonitis. Cultures are s till negative to date. Leukocytosis is improving. The patient has also anemia and thrombocytopenia, most likely due to liver disease with elevated liver function and the patient also has renal insuffi ciency and protein-calorie malnourishment, moderate morbid obesity, history of atrial fibrillation, p leural effusions. We will recommend to continue to monitor liver function as the patient is on Zithr omax and Rocephin. We will recommend to continue antibiotic for 2 weeks, can be switched to oral on discharge. Thank you Dr. Dill for consult. NF/MODL Voice ID: [id number] Report ID: [id number]
[2020-04-01] MEDS: FUROSEMIDE 20 MG/ 2ML VIAL IV SCH ×2 (12:21→17:10)
[2020-04-01] MEDS: glipiZIDE 5 MG TAB PO SCH ×2 (12:27→20:07)
[2020-04-01] MEDS: LEVOTHYROXINE SOD 0.05 MG TABLET PO SCH (17:10)
--- NOTE | 2020-04-01 19:17 | EKG ---
Test Date: 2020-03-30 Test Time: 12:05:08 Layout Operator: KIZZY MEASUREMENT RESULTS: Intervals: Rate: 81 MI: 200 QRSD: 92 QT: 406 QTc: 471 [place]: P: 59 MI: 200 QRS: -16 T: 13 INTERPRETIVE STATEMENTS: Sinus rhythm with premature supraventricular complexes with frequent premature ventricular complexes Otherwise normal ECG Compared to ECG 09/05/2017 14:12:07 Atrial premature complex(es) now present Ventricular premature complex(es) now present Sinus bradycardia no longer present First degree AV block no longer present Left ventricular hypertrophy no longer present Electronically Signed On 04-01-20 19:13:05 MAINTENANCE MECHANIC HELPER by Kurtis Gomes
[2020-04-01] MEDS: COLESTIPOL 1 GM TAB PO SCH (20:07)
[2020-04-02] MEDS: FUROSEMIDE 20 MG/ 2ML VIAL IV SCH ×3 (00:24→17:31)
[2020-04-02] MEDS: IPRATROPIUM BROM 0.5MG/2.5ML NEB SCH ×4 (00:40→20:05)
[2020-04-02] MEDS: LEVOTHYROXINE SOD 0.05 MG TABLET PO SCH ×2 (05:46→17:31)
[2020-04-02] MEDS: ALBUTEROL 2.5 MG/3 ML NEB SOL NEB PRN ×2 (07:30→13:49)
--- NOTE | 2020-04-02 07:31 | ECHO ---
HEIGHT: 5 ft 9 in WEIGHT: 235 lb 0 oz DATE OF STUDY: 04/01/[address]: Derrell Dill MD 2-DIMENSIONAL: YES M.MODE: YES DOPPLER: YES COLOR FLOW: YES TDS: YES PORTABLE: DEFINITY: BUBBLE STUDY: DIAGNOSIS: CONGESTIVE HEART FAILURE CARDIAC HISTORY: CATHERIZATION: YES SURGERY: NO PROSTHETIC VALVE: NO PACEMAKER: NO MEASUREMENTS (cm) DIASTOLIC (NORMALS) SYSTOLIC (NORMALS) IVSd 1.2 (0.6-1.2) LA Diam 3.4 (1.9-4.0) LVEF 52% LVIDd 2.6 (3.5-5.7) LVIDs 1.9 (2.0-3.5) %FS 25% LVPWd 1.2 (0.6-1.2) Ao Diam 2.8 (2.0-3.7) 2 DIMENSIONAL ASSESSMENT: RIGHT ATRIUM: NORMAL LEFT ATRIUM: NORMAL RIGHT VENTRICLE: NORMAL LEFT VENTRICLE: NORMAL TRICUSPID VALVE: NORMAL MITRAL VALVE: NORMAL PULMONIC VALVE: NORMAL AORTIC VALVE: NORMAL PERICARDIAL EFFUSION: NONE AORTIC ROOT: NORMAL LEFT VENTRICULAR WALL MOTION: NORMAL EJECTION FRACTION DOPPLER/COLOR FLOW: NORMAL COMMENTS: TECHNICALLY DIFFICULT STUDY. GROSSLY NORMAL LEFT VENTRICULAR SIZE AND EJECTION FRACTION. DIASTOLIC DYSFUNCTION. TECHNOLOGIST: CATE TRUJILLO
[2020-04-02] MEDS: ENALAPRIL 2.5 MG TAB PO SCH (08:45)
[2020-04-02] MEDS: glipiZIDE 5 MG TAB PO SCH ×2 (08:45→20:21)
[2020-04-02] MEDS: atenoloL 25 MG TAB PO SCH (08:45)
[2020-04-02] MEDS: COLESTIPOL 1 GM TAB PO SCH ×2 (08:45→20:21)
[2020-04-02] MEDS: APIXABAN 2.5 MG TABLET PO SCH ×2 (08:46→20:20)
[2020-04-02] MEDS: ASPIRIN EC 81 MG TAB PO SCH (08:46)
[2020-04-02] MEDS: TAMSULOSIN 0.4 MG SR CAP PO SCH (08:46)
[2020-04-02] MEDS: CEFTRIAXONE/SWI 1gm 1 GM/10 ML SYR IVP SCH ×2 (08:54→20:20)
[2020-04-02] MEDS ORDERED: SAXAGLIPTIN HCL 2.5 MG PO SCH (09:00)
[2020-04-02] MEDS: DRONEDARONE 400 MG TAB PO SCH ×2 (09:33→20:21)
[2020-04-02] MEDS: AZITHROMYCIN IV 500 MG in NA CHLORIDE 0.9% 250 ML IVPB SCH (09:33)
[2020-04-02 10:06] LABS: Absolute Lymphocytes (CBC) 0.5 K/uL (0.7-4.9); Basophils % 0.5 % (0-1.3); Hematocrit 32.2 % (39.6-49.0); Lymphocytes % 7.8 % (15.3-44.8); MPV 8.9 fL (7.6-11.3); RBC Red Blood Cell Count 3.47 M/uL (4.33-5.43)
[2020-04-02 10:23] LABS: Magnesium 1.8 mg/dL (1.8-2.4); Potassium 3.9 mmol/L (3.5-5.1)
--- NOTE | 2020-04-02 14:15 | RAD REPORT ---
EXAM DESCRIPTION: RAD - Chest Single View - 04/02/2020 1:44 pm CLINICAL HISTORY: shortness of breath COMPARISON: Portable April 01 TECHNIQUE: AP portable chest image was obtained 04/02/2020 1:44 pm . FINDINGS: Lung volumes are low. Hazy right base opacification is present with costophrenic angle saravanan nting. This is similar to comparison. Minimal left costophrenic angle blunting is seen. Heart and vas culature are normal. No pneumothorax. No peripheral mass consolidation in the mid or upper lung field s. Overall interstitial pattern has decreased in prominence from comparison. No acute bony abnormalit y seen. No acute aortic findings suspected. IMPRESSION: Low lung volume examination showing small bilateral pleural effusions. Overall interstitial edema or thickening has improved from prior day imaging.
[2020-04-02] MEDS ORDERED: METHYLPREDNISOLONE 40 MG INJ IV ONE (14:29)
[2020-04-03] MEDS: IPRATROPIUM BROM 0.5MG/2.5ML NEB SCH ×3 (00:40→13:24)
[2020-04-03] MEDS: FUROSEMIDE 20 MG/ 2ML VIAL IV SCH ×2 (01:02→08:40)
[2020-04-03] MEDS: LEVOTHYROXINE SOD 0.05 MG TABLET PO SCH (05:26)
[2020-04-03 06:22] LABS: Absolute Lymphocytes (CBC) 0.3 K/uL (0.7-4.9); Basophils % 0.7 % (0-1.3); Hematocrit 31.4 % (39.6-49.0); Lymphocytes % 5.2 % (15.3-44.8); MPV 8.6 fL (7.6-11.3); RBC Red Blood Cell Count 3.44 M/uL (4.33-5.43)
[2020-04-03 07:19] LABS: Phosphorus 3.1 mg/dL (2.5-4.9); Potassium 4.1 mmol/L (3.5-5.1)
[2020-04-03 07:24] LABS: Magnesium 1.4 mg/dL (1.8-2.4)
[2020-04-03] MEDS ORDERED: Magnesium Sulfate 2gm IVPB 2 G/50 ML BAG IV ONE ×2 (07:32→10:00)
--- NOTE | 2020-04-03 07:51 | RAD REPORT ---
EXAM DESCRIPTION: RAD - Chest Single View - 04/03/2020 5:27 am CLINICAL HISTORY: pneumonia COMPARISON: Portable April 02 TECHNIQUE: AP portable chest image was obtained 04/03/2020 5:27 am . FINDINGS: No acute lung parenchymal process. Right hemidiaphragm elevation limits right base assessm ent. No significant failure or volume overload. Heart and vasculature are normal. No pneumothorax or enlarging pleural effusion. No acute bony abnormality seen. No acute aortic findings suspected. IMPRESSION: Stable chest examination from April 02. Right hemidiaphragm elevation limits posterio r right base assessment.
[2020-04-03 08:06] LABS: Blood Morphology Comment NOT SEEN (NOT SEEN); Platelet Estimate DECR; White Blood Cell Scan OK (OK)
[2020-04-03] MEDS: COLESTIPOL 1 GM TAB PO SCH (08:39)
[2020-04-03] MEDS: glipiZIDE 5 MG TAB PO SCH (08:39)
[2020-04-03] MEDS: CEFTRIAXONE/SWI 1gm 1 GM/10 ML SYR IVP SCH (08:39)
[2020-04-03] MEDS: atenoloL 25 MG TAB PO SCH (08:40)
[2020-04-03] MEDS: DRONEDARONE 400 MG TAB PO SCH (08:40)
[2020-04-03] MEDS: APIXABAN 2.5 MG TABLET PO SCH (08:40)
[2020-04-03] MEDS: TAMSULOSIN 0.4 MG SR CAP PO SCH (08:40)
[2020-04-03] MEDS: ASPIRIN EC 81 MG TAB PO SCH (08:40)
[2020-04-03] MEDS: AZITHROMYCIN IV 500 MG in NA CHLORIDE 0.9% 250 ML IVPB SCH (08:41)
[2020-04-03] MEDS: ENALAPRIL 2.5 MG TAB PO SCH (08:46)
[2020-04-03 13:47] VITALS: O2SAT 94
--- NOTE | 2020-04-08 16:30 | P.PN ---
Date of Service: 04/01/20 Subjective Pt is still SOB; feeling somewhat better; still hypoxic Review of Systems 10-point ROS is otherwise unremarkable Physical Examination - Vital Signs reviewed - Physical Exam General: Alert, In no apparent distress, Oriented x3 Respiratory: Diminished, Crackles/rales, Rhonchi/gurgles Cardiovascular: Regular rate/rhythm, Normal S1 S2, No murmurs Gastrointestinal: Normal bowel sounds, Soft and benign, Non-distended, No tenderness Neurological: Normal speech, Normal tone, Normal affect Assessment & Plan - Problems (Diagnosis) (1) Right lower lobe pneumonia Current Visit: Yes Status: Acute (2) CHF (congestive heart failure) Current Visit: Yes Status: Acute (3) Urinary tract infection Current Visit: No Status: Acute (4) Diabetes mellitus Current Visit: No Status: Chronic (5) Hypertensive disorder, systemic arterial Current Visit: No Status: Chronic - Plan Continue plan as mentioned below 1. Continue with IV antibiotics 2. Cultures are negative 3. CXR with infiltrates 4. O2 per protocol 5. Heplock IV 6. Monitor labs-BNP; CBC; procalcitonin, lactate 7. GI and DVT prophylaxis
--- NOTE | 2020-04-08 16:31 | P.PN ---
Date of Service: 04/02/20 Subjective Improved, but still dyspneic with ambulation; O2 sats are improving Review of Systems 10-point ROS is otherwise unremarkable Physical Examination - Vital Signs reviewed - Physical Exam General: Alert, In no apparent distress, Oriented x3 Respiratory: Clear except for basilar crackles Cardiovascular: Regular rate/rhythm, Normal S1 S2, No murmurs Gastrointestinal: Normal bowel sounds, Soft and benign, Non-distended, No tenderness Neurological: Normal speech, Normal tone, Normal affect Assessment & Plan - Problems (Diagnosis) (1) Right lower lobe pneumonia Current Visit: Yes Status: Acute (2) CHF (congestive heart failure) Current Visit: Yes Status: Acute (3) Urinary tract infection Current Visit: No Status: Acute (4) Diabetes mellitus Current Visit: No Status: Chronic (5) Hypertensive disorder, systemic arterial Current Visit: No Status: Chronic - Plan Continue plan as mentioned below 1. Continue with IV antibiotics 2. Cultures are negative 3. CXR with infiltrates 4. O2 per protocol-arrange for home oxygen 5. Heplock IV 6. Monitor labs 7. GI and DVT prophylaxis
--- NOTE | 2020-04-08 16:34 | P.DS ---
Discharge Date: 04/03/20 Disposition: ROUTINE DISCHARGE Discharge Condition: GOOD Reason for Admission: Shortness of breath - Problems (1) Right lower lobe pneumonia Status: Acute (2) CHF (congestive heart failure) Status: Acute (3) Urinary tract infection Status: Acute (4) Diabetes mellitus Status: Chronic (5) Hypertensive disorder, systemic arterial Status: Chronic Brief History of Present Illness: Patient is a 89-year-old gentleman who came to the hospital with difficulty breathing. Patient was having some shortness of breath and he was found to be tachypneic in the emergency room. However, he was maintaining his O2 sats. He came to the emergency room for further evaluation. In the ER he was found have an elevated procalcitonin level. There is some right lower lobe haziness. Patient could also have a pneumonia. His BNP on arrival was also elevated. Would check an echocardiogram. Prior echocardiogram did not reveal any significant abnormalities. Patient be admitted to the hospital for further evaluation. Hospital Course: Patient had a difficult time with her respiratory status. Patient's actually became hypoxic. We had to start patient on nebs and antibiotics. Patient was also diuresed. Clinically patient continues to do well and we were able to wean down the oxygen. At this time, patient is stable for going home with home oxygen. Hopefully will be able to continue weaning off the oxygen over the next few weeks and patient can do well without home oxygen. At the time patient is stable for discharge home. Vital Signs/Physical Exam: Temp Pulse Resp BP Pulse Ox 97.2 F 55 18 110/53 L 95 04/03/20 12:00 04/03/20 12:00 04/03/20 12:00 04/03/20 12:00 04/03/20 12:00 General: Alert, In no apparent distress, Oriented x3 Laboratory Data at Discharge: WBC 5.5 K/uL (4.3-10.9) 04/03/20 06:05 Hgb 10.6 g/dL (13.6-17.9) L 04/03/20 06:05 Hct 31.4 % (39.6-49.0) L 04/03/20 06:05 Plt Count 117 K/uL (152-406) L 04/03/20 06:05 PT 17.9 SECONDS (9.5-12.5) H 03/31/20 05:17 INR 1.53 03/31/20 05:17 APTT 30.9 SECONDS (24.3-36.9) 03/31/20 05:17 Sodium 141 mmol/L (136-145) 04/03/20 06:05 Potassium 4.1 mmol/L (3.5-5.1) 04/03/20 06:05 BUN 34 mg/dL (7-18) H 04/03/20 06:05 Creatinine 1.98 mg/dL (0.55-1.3) H 04/03/20 06:05 Glucose 204 mg/dL (74-106) H 04/03/20 06:05 Phosphorus 3.1 mg/dL (2.5-4.9) 04/03/20 06:05 Magnesium Cancelled 04/03/20 17:00 Total Bilirubin 1.0 mg/dL (0.2-1.0) 03/31/20 05:17 AST 74 U/L (15-37) H 03/31/20 05:17 ALT 94 U/L (12-78) H 03/31/20 05:17 Alkaline Phosphatase 85 U/L (45-117) 03/31/20 05:17 Triglycerides 83 mg/dL (<150) 03/31/20 05:17 Cholesterol 110 mg/dL (<200) 03/31/20 05:17 HDL Cholesterol 44 mg/dL (40-60) 03/31/20 05:17 Cholesterol/HDL Ratio 2.50 03/31/20 05:17 Lipase 130 U/L (73-393) 03/30/20 12:18 Home Medications: Apixaban [Eliquis *] 2.5 mg PO BID 03/30/20 Aspirin [Ecotrin 81 MG] 81 mg PO DAILY 03/30/20 Colestipol HCl [Colestid] 1 gm PO BID 03/30/20 Dronedarone [Multaq*] 400 mg PO BID 03/30/20 Enalapril [Vasotec*] 5 mg PO DAILY 03/30/20 Levothyroxine [Synthroid*] 50 mcg PO DAILY 03/30/20 Saxagliptin HCl [Onglyza] 2.5 mg PO DAILY 03/30/20 Tamsulosin [Flomax*] 0.4 mg PO DAILY 12/14/20 atenoloL [Tenormin*] 25 mg PO DAILY 03/30/20 glipiZIDE [Glipizide] 10 mg PO BID 03/30/20 Albuterol Neb [Proventil 0.083% Neb Soln] 2.5 mg NEB [id number] PRN #60 amp 04/03/20 Cefdinir [Omnicef] 300 mg PO BID #14 capsule 04/03/20 Furosemide [Lasix] 20 mg PO DAILY #30 tablet 04/03/20 Ipratropium Neb [Atrovent*] 0.5 mg NEB [id number] #60 amp 04/03/20 Magnesium Chloride [Slow-Mag] 64 mg PO DAILY #7 tab 04/03/20 Magnesium Oxide [Magnesium] 400 mg PO BID 04/03/20 Potassium Chloride [K-Dur] 10 meq PO M,W,F #30 tab.er.prt 04/03/20 New Medications: Ipratropium Neb [Atrovent*] 0.5 mg NEB [id number] #60 amp Potassium Chloride [K-Dur] 10 meq PO M,W,F #30 tab.er.prt Furosemide [Lasix] 20 mg PO DAILY #30 tablet Cefdinir [Omnicef] 300 mg PO BID #14 capsule Albuterol Neb [Proventil 0.083% Neb Soln] 2.5 mg NEB [id number] PRN #60 amp PRN Reason: Shortness Of Breath Magnesium Chloride [Slow-Mag] 64 mg PO DAILY #7 tab Diet: AHA Activity: Fall precautions Followup: Akash Weldon MD [Primary Care Provider] - Time spent managing pt's care (in minutes): 35
[2020-04-08 16:36] VITALS: BP 150/70; TEMP 98.2
== END 2020-04-03 15:01 | disposition home or self-care (01) | DRG 193 ==
LOC: ER 11:19 → ERHOLD 14:55 → 2ND 15:45
PROVIDERS: ADMIT Hospitalist; ATTEND Hospitalist
DX: J18.9 Pneumonia, unspecified organism (principal); I50.31 Acute diastolic (congestive) heart failure; N39.0 Urinary tract infection, site not specified; I13.0 Hypertensive heart and chronic kidney disease with heart failure and stage 1 through stage 4 chronic kidney disease, or unspecified chronic kidney disease; E44.0 Moderate protein-calorie malnutrition; N18.9 Chronic kidney disease, unspecified; M54.5 Low back pain; I48.91 Unspecified atrial fibrillation; I25.10 Atherosclerotic heart disease of native coronary artery without angina pectoris; D64.9 Anemia, unspecified; E78.5 Hyperlipidemia, unspecified; G89.29 Other chronic pain; D69.6 Thrombocytopenia, unspecified; R79.89 Other specified abnormal findings of blood chemistry; E66.01 Morbid (severe) obesity due to excess calories; Z68.34 Body mass index [BMI] 34.0-34.9, adult; Z88.0 Allergy status to penicillin; Z88.8 Allergy status to other drugs, medicaments and biological substances; Z79.890 Hormone replacement therapy; Z79.01 Long term (current) use of anticoagulants; Z79.82 Long term (current) use of aspirin; Z79.899 Other long term (current) drug therapy; Z79.84 Long term (current) use of oral hypoglycemic drugs; Z95.5 Presence of coronary angioplasty implant and graft; Z90.49 Acquired absence of other specified parts of digestive tract; Z20.828 Contact with and (suspected) exposure to other viral communicable diseases
CPT/HCPCS: 36415; 71045; 74176; 76705; 80048; 80053; 80061; 80076; 81003; 81015; 82947; 83605; 83690; 83735; 83880; 84100; 84145; 84484; 85025; 85610; 85730; 87040; 93005; 93306; 94640; 94760; 96365; 96375; 99285; J0456; J0696; J1650; J1940; J2920; J3475; J7030; J7050; U0003

== ENCOUNTER 2020-08-14 11:11 | Emergency (ER) | payer OTHER, BC ==
--- OUTSIDE RECORDS SUMMARY | 2020-08-14 11:14 | XMS REPORT | Continuity of Care Document ---
:1930 Author Organization [facility] t Address [address] [place] [address] Care Team Providers Name Role Phone Unavailable Unavailable Unavailable Payers Payer Name Policy Type Policy Number Effective Date Expiration Date S ource Problems This patient has no known problems. Allergies, Adverse Reactions, Alerts Allergy Allergy Status Severity Reaction(s) Onset Inactive Treating Comm ents Source Name Type Date Date Clinician [place] DA Active [facility] ins 05-18 [place] [facility] No Known DA Active U 0 [facility] Allergie 05-17 [place] [facility] 00[facility] Medications This patient has no known medications. Procedures This patient has no known procedures. Results Test Description Test Time Test Comments Results Result [facility] e Comments - XR FLUORO FOR 2018-05-18 Patient Name: SPINE INJ 15:54:00 NNAMDI DORANTES Unit No: [id number] EXAMS: CPT CODE: [id number] XR FLUORO FOR SPINE INJ 53116 LUMBAR TRANSFORAMINAL INJECTION AND LUMBAR FACET BLOCK [...] uptake. The patient's vital signs remained stable. [facility] NAME: NNAMDI DORANTES [address] [facility] PHYS: DOCFESTUS - DoctorDarin MD [place], [place] [address] : 1930 AGE: 87 SEX: M LOC: YGosiaNOEMY PHONE #: [phone] EXAM DATE: 05/18/2018 [place] [facility] [place]: [phone] RAD #: D/C DT PAGE 1 Signed Report (CONTINUED) Patient Name: NNAMDI DORANTES Unit No: [id number] EXAMS: CPT CODE: [id number] XR FLUORO FOR SPINE INJ [id number] <Continued> The patient was placed in a [...] was taken to the recovery room. at 1552 Reported and signed by: Darin Riley M.D. CC: Darin Riley MD Technologist: LUDIN LICONA RT(R) Transcribed D/ (1856) [email or web address] [facility] NAME: NNAMID DORANTES [address] PHYS: Darin Sims MD [place], [place] [address] : 1930 AGE: 87 SEX: M LOC: SARAHI PHONE #: [phone] EXAM DATE: 05/18/2018 [place] [facility] [place]: [phone] RAD #: D/C DT PAGE 2 Signed Report Patient Name: NNAMDI DORANTES Unit No: [id number] EXAMS: CPT CODE: [id number] XR FLUORO FOR SPINE INJ 23105 <Continued> Orig Print D/T: S: 05/18/2018 ([id number]) [facility] NAME: NNAMDI DORANTES [facility] PHYS: Darin Sims MD [place], [place] [address] : 1930 AGE: 87 SEX: M LOC: SARAHI PHONE #: [phone] EXAM DATE: 05/18/2018 [place] [facility] [place]: [phone] RAD #: D/C DT PAGE 3 Signed Report GLUBED 2018-05-18 12:56:00 Test Item Value Reference Range Interpretation Comme nts GLUBED (test code = GLUBED) 105 mg/dL 60-125 N [id number] 11:00:00 Test Item Value Reference Range Interpretation Comments GLUBED (test code = GLUBED) 109 mg/dL 60-125 N
[2020-08-14 12:27] LABS: Absolute Lymphocytes (CBC) 0.4 K/uL (0.7-4.9); Basophils % 0.3 % (0-1.3); Hematocrit 34.6 % (39.6-49.0); MPV 8.8 fL (7.6-11.3); RBC Red Blood Cell Count 3.82 M/uL (4.33-5.43)
[2020-08-14 12:40] LABS: Albumin 2.9 g/dL (3.4-5.0); Bilirubin Direct 2.3 mg/dL (0-0.2); Bilirubin Total 3.1 mg/dL (0.2-1.0); Potassium 4.7 mmol/L (3.5-5.1); Protein, Total 6.7 g/dL (6.4-8.2)
--- NOTE | 2020-08-14 12:50 | RAD REPORT ---
EXAM DESCRIPTION: CT - Abdomen Pelvis Wo Contrast - 08/14/2020 12:20 pm CLINICAL HISTORY: Abdominal pain. ABD PAIN COMPARISON: Abdomen Pelvis Wo Contrast dated 03/30/2020 TECHNIQUE: CT imaging of the abdomen and pelvis was performed without contrast. Solid organ, bowel a nd vascular assessment is limited due to lack of IV and oral contrast. All CT scans are performed using dose optimization technique as appropriate and may include automated exposure control or mA/KV adjustment according to patient size. FINDINGS: Atelectasis is present in the right lung base with elevated right hemidiaphragm. No aggressive liver lesion. Mild pneumobilia is seen. Cholecystectomy clips. Spleen, pancreas, adrena l glands and kidneys are within normal limits. No bowel obstruction, free air, free fluid or abscess. Mild colonic diverticulosis seen. The appendix is normal. No fractures are evident. IMPRESSION: No acute intra-abdominal or pelvic findings. Chronically elevated right hemidiaphragm. A limited non-contrast examination was performed as detailed.
[2020-08-14] MEDS ORDERED: ONDANSETRON 4 MG/2 ML VIAL ONE (12:56)
[2020-08-14 13:07] LABS: Blood Morphology Comment NOT SEEN (NOT SEEN); Platelet Estimate ADEQ
--- NOTE | 2020-08-14 14:30 | RAD REPORT ---
EXAM DESCRIPTION: Zoila Single View08/14/2020 1:50 pm CLINICAL HISTORY: Fever COMPARISON: 2019 FINDINGS: Areas subsegmental atelectasis and elevation of the right hemidiaphragm unchanged Remainder lungs appear clear of acute infiltration. Heart is mildly enlarged
[2020-08-14] MEDS ORDERED: NA CHLORIDE 0.9% 500 ML ONE (14:50)
[2020-08-14 15:40] LABS: Urine Blood Trace-intact (Negative); Urine Glucose Negative (Negative); Urine Protein 1+ (Negative); Urine Specific Gravity 1.015 (1.005-1.030)
[2020-08-14 15:56] LABS: SARS-COV-2 RT PCR NEGATIVE (NEGATIVE)
--- NOTE | 2020-08-14 16:33 | ER ---
Nurse's Notes [facility] Name: Cecil Coleman Age: 89 yrs Sex: Male : 1930 Arrival Date: 08/14/2020 Time: 11:12 Bed 28 Private MD: Diagnosis: Fever, unspecified Presentation: 08/14 11:25 Chief complaint: Fever, chills, headache, and N/V x 2 days. TMAX 103. Took Tylenol ES x hb 2 at 0900. Coronavirus screen: Client presents with at least one sign or symptom that may indicate coronavirus-19. Standard/surgical mask placed on the client. Provider contacted for isolation considerations. Ebola Screen: No symptoms or risks identified at this time. Initial Sepsis Screen: Does the patient meet any 2 criteria? No. Patient's initial sepsis screen is negative. Does the patient have a suspected source of infection? No. Patient's initial sepsis screen is negative. Risk Assessment: Do you want to hurt yourself or someone else? Patient reports no desire to harm self or others. Onset of symptoms was August 13, 2020. 11:25 Method Of Arrival: Wheelchair hb 11:25 Acuity: KANCHAN 2 hb Historical: - Allergies: 11:27 PENICILLINS; hb 11:27 Simvastatin; hb - Immunization history:: Adult Immunizations up to date, COVID vaccine 05/2020. - Social history:: Smoking status: Patient denies any tobacco usage or history of. Screenin:42 Abuse screen: Denies threats or abuse. Nutritional screening: No deficits noted. kg Tuberculosis screening: No symptoms or risk factors identified. Fall Risk No fall in past 12 months (0 pts). No secondary diagnosis (0 pts). IV access (20 points). Ambulatory Aid- None/Bed Rest/Nurse Assist (0 pts). Gait- Weak (10 pts.). Mental Status- Oriented to own ability (0 pts). Total Chavez Fall Scale indicates No Risk (0-24 pts). Assessment: 12:36 General: Appears in no apparent distress. Behavior is calm, cooperative, appropriate kg for age, quiet. Pain: Denies pain. Neuro: No deficits noted. Cardiovascular: No deficits noted. Respiratory: No deficits noted. GI: Abdomen is round obese, Last BM was August 13, 2020. Reports nausea, vomiting. 13:03 Reassessment: "Yola" left to go get something to eat. Her phone number- kg [phone]. Vital Signs: 11:25 BP 99 / 41; Pulse 72; Resp 20; Temp 99.3(TE); Pulse Ox 99% on R/A; Pain 6/10; hb 12:30 BP 109 / 39; Pulse 74; Resp 18; Temp 99.1(O); Pulse Ox 96% on R/A; Pain 0/10; kg 13:30 BP 112 / 43; Pulse 68; Resp 20; Pulse Ox 98% on R/A; kg 15:30 BP 98 / 39; Pulse 67; Resp 20; Pulse Ox 96% on R/A; kg 17:00 BP 93 / 39; Pulse 64; Resp 18; Pulse Ox 96% on R/A; kg ED Course: 11:12 Patient arrived in ED. am2 11:26 Triage completed. hb 11:27 Arm band placed on. hb 11:30 Ayala Russo FNP-C is [facility]. kb 11:30 Austin Mosher MD is Attending Physician. kb 11:49 Ledy Cortez is Primary Nurse. kg 12:10 Inserted saline lock: 20 gauge in left antecubital area, using aseptic technique. kg 12:14 Blood Culture Adult (2) Sent. kg 12:15 Basic Metabolic Panel Sent. kg 12:15 CBC with Diff Sent. kg 12:15 Hepatic Function Sent. kg 12:15 Lipase Sent. kg 12:20 Abdomen In Process Unspecified. EDMS 12:35 Patient has correct armband on for positive identification. Allergy band placed. Bed in kg low position. Call light in reach. Side rails up X2. 13:49 Chest Single View XRAY In Process Unspecified. EDMS 17:45 No provider procedures requiring assistance completed. IV discontinued, intact, kg bleeding controlled, No redness/swelling at site. Pressure dressing applied. Administered Medications: 12:45 Drug: Zofran (Ondansetron) 4 mg Route: IVP; Site: left antecubital; kg 14:23 Follow up: Response: No adverse reaction; Marked relief of symptoms kg 14:39 Drug: NS 0.9% 500 ml Route: IV; Rate: bolus; Site: left antecubital; kg 15:00 Follow up: Response: No adverse reaction; IV Status: Completed infusion; IV Intake: kg 500ml 16:58 Follow up: Response: No adverse reaction kg 17:13 Drug: Rocephin (cefTRIAXone) 1 grams Route: IV; Rate: calculated rate; Site: left kg antecubital; 17:48 Follow up: Response: No adverse reaction; IV Status: Completed infusion; IV Intake: 10mlkg Intake: 15:00 IV: 500ml; Total: 500ml. kg 17:48 IV: 10ml; Total: 510ml. kg Outcome: 16:32 Discharge ordered by . glenn 17:47 Discharged to home via wheelchair. kg 17:47 Condition: improved 17:47 Discharge instructions given to patient, family, Instructed on discharge instructions, follow up and referral plans. Demonstrated understanding of instructions, follow-up care, medications, Prescriptions given X 2. 17:49 Patient left the ED. kg Signatures: Dispatcher [employer] EDMS Ayala Russo, CHRISS-C PRINT PRODUCER-CkJessica Leonard RN RN Lana Hutchison Ledy Nichols kg Corrections: (The following items were deleted from the chart) 11:27 11:25 Acuity: KANCHAN 3 hb hb 15:12 14:23 Influenza Screen (A \\T\\ B)+BA.LAB.BRZ drawn and sent. kg EDMS 15:12 14:23 CORONAVIRUS+MR.LAB.BRZ drawn and sent. kg EDMS
--- NOTE | 2020-08-14 16:33 | EDPHYS ---
Physician Documentation [facility] Name: Cecil Coleman Age: 89 yrs Sex: Male : 1930 Arrival Date: 08/14/2020 Time: 11:12 Bed 28 Private MD: ED Physician Austin Mosher HPI: 08/14 15:56 This 89 yrs old Male presents to ER via Wheelchair with complaints of Fever, kb General Weakness, Nausea. 15:56 The patient reports fever, that was measured at 102 degrees Fahrenheit, with an kb emergency department temperature of 99.1 degrees Fahrenheit. Onset: The symptoms/episode began/occurred this morning. Modifying factors: there are no obvious modifying factors. Associated signs and symptoms: Pertinent positives: abdominal pain, vomiting. Severity of symptoms: At their worst the symptoms were moderate in the emergency department the symptoms are unchanged. The patient has not experienced similar symptoms in the past. The patient has not recently seen a physician. Pt woke up with fever this morning, slight abd pain and one episode of vomiting. . Historical: - Allergies: 11:27 PENICILLINS; hb 11:27 Simvastatin; hb - Immunization history:: Adult Immunizations up to date, COVID vaccine 05/2020. - Social history:: Smoking status: Patient denies any tobacco usage or history of. ROS: 15:55 Cardiovascular: Negative for chest pain, palpitations, and edema, Respiratory: Negative kb for shortness of breath, cough, wheezing, and pleuritic chest pain, MS/Extremity: Negative for injury and deformity, Skin: Negative for injury, rash, and discoloration, Neuro: Negative for headache, weakness, numbness, tingling, and seizure. 15:55 Constitutional: Positive for chills, fever. 15:55 Abdomen/GI: Positive for abdominal pain, nausea and vomiting. Exam: 15:56 Constitutional: This is a well developed, well nourished patient who is awake, alert, kb and in no acute distress. Head/Face: Normocephalic, atraumatic. Cardiovascular: Regular rate and rhythm with a normal S1 and S2. No gallops, murmurs, or rubs. No pulse deficits. Respiratory: Respirations even and unlabored. No increased work of breathing, no retractions or nasal flaring. Abdomen/GI: Soft, non-tender. No distention Skin: Warm, dry with normal turgor. Normal color. MS/ Extremity: Pulses equal, no cyanosis. Neurovascular intact. Full, normal range of motion. Neuro: Awake and alert, GCS 15, oriented to person, place, time, and situation. Moves all extremities. Normal gait. Vital Signs: 11:25 BP 99 / 41; Pulse 72; Resp 20; Temp 99.3(TE); Pulse Ox 99% on R/A; Pain 6/10; hb 12:30 BP 109 / 39; Pulse 74; Resp 18; Temp 99.1(O); Pulse Ox 96% on R/A; Pain 0/10; kg 13:30 BP 112 / 43; Pulse 68; Resp 20; Pulse Ox 98% on R/A; kg 15:30 BP 98 / 39; Pulse 67; Resp 20; Pulse Ox 96% on R/A; kg 17:00 BP 93 / 39; Pulse 64; Resp 18; Pulse Ox 96% on R/A; kg MDM: 11:31 Patient medically screened. kb 15:30 Data reviewed: vital signs, nurses notes. Data interpreted: Pulse oximetry: on room air kb is 96 %. Interpretation: normal. 15:58 ED course: Awaiting covid result and Dr Mosher evaluation. kb 16:33 Counseling: I had a detailed discussion with the patient and/or guardian regarding: the kb historical points, exam findings, and any diagnostic results supporting the discharge/admit diagnosis, lab results, radiology results, the need for outpatient follow up, a family practitioner, to return to the emergency department if symptoms worsen or persist or if there are any questions or concerns that arise at home. ED course: Dr Mosher evaluated pt as well. Recommends dose of rocephin and follow up outpatient. 08/14 11:36 Order name: Basic Metabolic Panel; Complete Time: 13:01 kb 08/14 11:36 Order name: CBC with Diff; Complete Time: 13:12 kb 08/14 11:36 Order name: Hepatic Function; Complete Time: 13:01 kb 08/14 11:36 Order name: Lipase; Complete Time: 13:01 kb 08/14 11:36 Order name: Blood Culture Adult (2) kb 08/14 12:10 Order name: Glucose, Ancillary Testing; Complete Time: 12:18 EDMS 08/14 12:19 Order name: Abdomen ; Complete Time: 13:01 EDMS 08/14 13:07 Order name: Manual Differential; Complete Time: 13:12 EDMS 08/14 13:13 Order name: Chest Single View XRAY; Complete Time: 14:37 kb 08/14 15:40 Order name: Urine Dipstick-Ancillary; Complete Time: 15:46 EDMS 08/14 15:56 Order name: COVID-19/FLU A+B; Complete Time: 15:58 EDMA 08/14 11:36 Order name: IV Saline Lock; Complete Time: 12:14 kb 08/14 11:36 Order name: Labs collected and sent; Complete Time: 12:14 kb 08/14 11:36 Order name: Blood Glucose Level; Complete Time: 12:14 kb Administered Medications: 12:45 Drug: Zofran (Ondansetron) 4 mg Route: IVP; Site: left antecubital; kg 14:23 Follow up: Response: No adverse reaction; Marked relief of symptoms kg 14:39 Drug: NS 0.9% 500 ml Route: IV; Rate: bolus; Site: left antecubital; kg 15:00 Follow up: Response: No adverse reaction; IV Status: Completed infusion; IV Intake: kg 500ml 16:58 Follow up: Response: No adverse reaction kg 17:13 Drug: Rocephin (cefTRIAXone) 1 grams Route: IV; Rate: calculated rate; Site: left kg antecubital; 17:48 Follow up: Response: No adverse reaction; IV Status: Completed infusion; IV Intake: 10mlkg Disposition: 08/15 08:00 Co-signature as Attending Physician, Austin Mosher MD I agree with the assessment and ama plan of care. Disposition: 08/14/20 16:32 Discharged to Home. Impression: Fever, unspecified. - Condition is Stable. - Discharge Instructions: Fever, Adult, [id number]. - Prescriptions for Bentyl 20 mg Oral Tablet - take 1 tablet by ORAL route every 6 hours As needed; 20 tablet. Zofran 4 mg Oral Tablet - take 1 tablet by ORAL route every 6 hours As needed; 20 tablet. - Medication Reconciliation Form, Thank You Letter, Antibiotic Education, Prescription Opioid Use form. - Follow up: Emergency Department; When: As needed; Reason: Worsening of condition. Follow up: Private Physician; When: 2 - 3 days; Reason: Recheck today's complaints, Continuance of care, Re-evaluation by your physician. Signatures: Dispatcher [employer] ED Ayala Russo, SOCCER PLAYER-C SOCCER PLAYER-Austin Bedolla MD MD cha Baxter, Heather, RN RN Ledy Ewing kg Corrections: (The following items were deleted from the chart) 08/14 12:18 11:36 Abdomen Pelvis W Con+CT.RAD.BRZ ordered. EDMA EDMS 15:12 13:03 CORONAVIRUS+MR.LAB.BRZ ordered. EDMS EDMS 15:12 13:03 Influenza Screen (A \T\ B)+BA.LAB.BRZ ordered. EDMA EDMS 15:57 15:55 Constitutional: Positive for fever, kb glenn 17:49 16:32 08/14/2020 16:32 Discharged to Home. Impression: Fever, unspecified. Condition is kg Stable. Forms are Medication Reconciliation Form, Thank You Letter, Antibiotic Education, Prescription Opioid Use. Follow up: Emergency Department; When: As needed; Reason: Worsening of condition. Follow up: Private Physician; When: 2 - 3 days; Reason: Recheck today's complaints, Continuance of care, Re-evaluation by your physician. kb
[2020-08-14] MEDS ORDERED: CEFTRIAXONE/SWI 1gm 1 GM/10 ML SYR ONE (17:20)
[2020-08-14 18:06] VITALS: TEMP 99.1
[2020-08-14 18:09] VITALS: O2SAT 96
[2020-08-14 18:10] VITALS: BP 93/39
== END 2020-08-14 17:49 | disposition home or self-care (01) ==
LOC: ER 11:11
DX: R50.9 Fever, unspecified (principal); Z20.822 Contact with and (suspected) exposure to COVID-19
CPT/HCPCS: 96365; 87040 ×2; 85025; 80048; 36415; 82565; 82947; 80076; 81003; 83690; 0240U; 74176; 71045; 96375; 99284; J0696; J7040; J2405